=== PATIENT | female | born 1955 | race African-American/Black ===

== ENCOUNTER 2016-10-27 13:18 | Emergency (ER) | payer OTHER, MEDICAID ==
[~2016-10-27] VITALS: Ht 167.6 cm; Wt 78.0 kg
[2016-10-27] MEDS ORDERED: TRAZ-129 PO (13:24)
[2016-10-27] MEDS ORDERED: METF500T4 PO (13:24)
[2016-10-27] MEDS ORDERED: KETOROLAC 30MG/ML VIAL IM ONE (14:30)
[2016-10-27 16:09] VITALS: BP 132/65
== END 2016-10-27 16:26 | disposition home or self-care (01) ==
LOC: ER 14:23
DX: S49.92XA Unspecified injury of left shoulder and upper arm, initial encounter (principal); M54.89 Other dorsalgia; I10 Essential (primary) hypertension; E11.9 Type 2 diabetes mellitus without complications; F31.9 Bipolar disorder, unspecified; Z88.0 Allergy status to penicillin; V43.62XA Car passenger injured in collision with other type car in traffic accident, initial encounter; Y93.89 Activity, other specified; Y92.488 Other paved roadways as the place of occurrence of the external cause
CPT/HCPCS: 71020; 81025; 82962; 96372; 99284; J1885